=== PATIENT | female | born 1930 | race Caucasian/White ===

== ENCOUNTER 2021-07-28 13:01 | Inpatient (IN) | payer MEDICARE ==
[~2021-07-28] VITALS: Ht 162.6 cm; Wt 52.2 kg
--- NOTE | 2021-07-28 13:01 | NUR ---
PT BIB SON C/O L SHOULDER AND R HIP PAIN S/P GLF UNWITNESSED. PER PT SON THEY FOUND HER ON THE FLOOR WITH VOMIT. PT IS AAOX, NOT IN RESPIRATORY DISTRESS, HOOKED TO THERAPY DIRECTOR, KEPT RESTED AND COMFORTABLE. WILL CONTINUE TO MONITOR.
--- NOTE | 2021-07-28 13:23 | NUR ---
SEEN AND EXAMINED BY .
--- NOTE | 2021-07-28 13:35 | NUR ---
PT IV LINE ESTABLISHED BLOOD DRAWN AND SENT TO LAB.
[2021-07-28 13:42] LABS: BASOPHILS % (AUTO) 0.2 % (0.0-2.0); HEMATOCRIT 42 % (33-45); LYMPHOCYTES # (AUTO) 0.5 K/uL (0.8-4.8); LYMPHOCYTES % (AUTO) 3.9 % (20.0-44.0); MEAN CORPUSCULAR HGB CONC 34 g/dl (31.0-36.0); MEAN CORPUSCULAR VOLUME 86 fL (82-100); MONOCYTES # (AUTO) 0.4 K/uL (0.1-1.30); MONOCYTES % (AUTO) 2.6 % (2.0-12.0); NEUTROPHILS # (AUTO) 12.8 K/uL (1.8-8.9); NEUTROPHILS % (AUTO) 93.3 % (43.0-81.0); PLATELET COUNT (AUTO) 265 K/uL (150-450); RED BLOOD CELL COUNT(AUTO) 4.86 MIL/uL (4.0-5.2); WHITE BLOOD COUNT (AUTO) 13.8 K/uL (4.3-11.0)
[2021-07-28 13:54] LABS: CALCIUM, SERUM 9.3 mg/dL (8.5-10.1); CARBON DIOXIDE 26 mmol/L (21-32); CHLORIDE 103 mmol/L (98-107); CREATININE 0.7 mg/dL (0.6-1.3); GLUCOSE 113 mg/dL (74-106); POTASSIUM 3.8 mmol/L (3.5-5.1); SODIUM SERUM 141 mmol/L (136-145); UREA NITROGEN, BLOOD 13 mg/dL (7-18)
[2021-07-28 14:00] LABS: ALANINE AMINOTRANSFERASE 19 U/L (12-78); ALBUMIN 3.6 g/dL (3.4-5.0); ALKALINE PHOSPHATASE 83 U/L (46-116); ASPARTATE AMINOTRANSFERASE 26 U/L (15-37); BILIRUBIN,DIRECT 0.2 mg/dL (0.0-0.2); BILIRUBIN,TOTAL 0.7 mg/dL (0.2-1.0); TOTAL PROTEIN, SERUM 7.3 g/dL (6.4-8.2)
[2021-07-28] MEDS ORDERED: ONDANSETRON HCL/PF 4 MG/2 ML VIAL ONE (14:41)
--- NOTE | 2021-07-28 14:51 | NUR ---
PT UNABLE TO PROVIDE URINE SPECIMEN THIS TIME. PT REFUSED URINARY CATH.
[2021-07-28] MEDS ORDERED: ONDANSETRON HCL/PF - ER 4 MG/2 ML VIAL IV ONE (15:00)
[2021-07-28] MEDS ORDERED: IV NS 0.9% 500 ML BAG IV ONE (15:00)
--- NOTE | 2021-07-28 15:22 | NUR ---
PT HOOKED TO PACER PADS.
--- NOTE | 2021-07-28 15:32 | NUR ---
URINE SPECIMEN COLLECTED AND SENT TO LAB.
--- NOTE | 2021-07-28 15:45 | NUR ---
2ND IV LINE ESTABLISHED. G18 L FOREARM.
[2021-07-28 15:53] LABS: BILIRUBIN,URINE NEGATIVE (NEGATIVE); COLOR,URINE YELLOW (YELLOW); LEUKOCYTE ESTERASE ,URINE TRACE (NEGATIVE); NITRITE, URINE NEGATIVE (NEGATIVE); PROTEIN,URINE NEGATIVE (NEGATIVE); UGLUCOSE NEGATIVE (NEGATIVE); UROBILINOGEN,URINE 0.2 EU/dL (0.2)
[2021-07-28] MEDS ORDERED: AMIODARONE HCL 200 MG TABLET PO ONE (16:00)
[2021-07-28 16:03] LABS: BACTERIA,URINE RARE /HPF (None Seen); SQUAMOUS EPITHELIAL CELL,UR 0-2 /HPF (None Seen)
[2021-07-28] MEDS ORDERED: AMIODARONE HCL 200 MG TABLET ONE (16:06)
--- NOTE | 2021-07-28 16:10 | NUR ---
TRACTOR TRAILER MOVING VAN DRIVER AT BEDSIDE FOR ULTRASOUND.
--- NOTE | 2021-07-28 16:30 | NUR ---
MOVE SHEET SUBMITTED AND CALLED FOR TELE BED.
[2021-07-28 16:38] LABS: MAGNESIUM 2.1 mg/dL (1.8-2.4)
[2021-07-28 16:55] LABS: THYROID STIMULATING HORMONE 1.953 uIU/mL (0.358-3.74)
[2021-07-28] MEDS ORDERED: ACETAMINOPHEN 325 MG TABLET PO PRN (17:00)
[2021-07-28] MEDS ORDERED: ZOLPIDEM TARTRATE 5 MG TABLET PO PRN (17:00)
[2021-07-28] MEDS ORDERED: MAG HYDROX/AL HYDROX/SIMETH 30 ML UDC PO PRN (17:00)
[2021-07-28] MEDS ORDERED: ONDANSETRON HCL/PF 4 MG/2 ML VIAL IVP PRN (17:00)
[2021-07-28] MEDS ORDERED: MAGNESIUM HYDROXIDE 30 ML UDC PO PRN (17:00)
[2021-07-28] MEDS ORDERED: Z GUARD REMEDY 2 OZ OINT TP PRN (17:00)
[2021-07-28] MEDS ORDERED: hydrALAZINE HCL IV 20 MG VIAL ONE (17:31)
[2021-07-28] MEDS ORDERED: hydrALAZINE HCL IV 20 MG VIAL IV ONE (18:00)
--- NOTE | 2021-07-28 19:32 | NUR ---
REPORT GIVEN TO ANNA MARC FOR MARYCRUZ.
[2021-07-28] MEDS ORDERED: ENOXAPARIN SODIUM 40 MG/0.4 ML DISP.SYRIN SQ SCH (21:00)
[2021-07-28] MEDS: AMIODARONE HCL 200 MG TABLET PO SCH (21:00)
--- NOTE | 2021-07-28 21:10 | NUR ---
REPORT GIVEN TO ED RN FOR MARYCRUZ
--- NOTE | 2021-07-28 21:15 | NUR ---
PT WAS TRANSFERRED TO ICU UNDER ACLS
[2021-07-28 21:30] VITALS: BP 145/76
[2021-07-28 22:00] VITALS: BP 161/73
[2021-07-28 22:30] VITALS: BP 138/57
[2021-07-28 23:00] VITALS: BP 120/60
[2021-07-29] VITALS (19 sets, daily range): BP systolic 115–171; BP diastolic 41–89
[2021-07-29 04:25] LABS: BASOPHILS % (AUTO) 0.1 % (0.0-2.0); HEMATOCRIT 41 % (33-45); HEMOGLOBIN 13.9 g/dL (11.5-14.8); LYMPHOCYTES # (AUTO) 1.2 K/uL (0.8-4.8); LYMPHOCYTES % (AUTO) 10.2 % (20.0-44.0); MEAN CORPUSCULAR HGB CONC 34 g/dl (31.0-36.0); MEAN CORPUSCULAR VOLUME 85 fL (82-100); MONOCYTES # (AUTO) 0.7 K/uL (0.1-1.30); MONOCYTES % (AUTO) 5.9 % (2.0-12.0); NEUTROPHILS # (AUTO) 10.1 K/uL (1.8-8.9); NEUTROPHILS % (AUTO) 83.8 % (43.0-81.0); PLATELET COUNT (AUTO) 277 K/uL (150-450); RED BLOOD CELL COUNT(AUTO) 4.84 MIL/uL (4.0-5.2); WHITE BLOOD COUNT (AUTO) 12.1 K/uL (4.3-11.0)
[2021-07-29 04:40] LABS: CALCIUM, SERUM 9.1 mg/dL (8.5-10.1); CREATININE 0.7 mg/dL (0.6-1.3); PHOSPHORUS 4.8 mg/dL (2.5-4.9); POTASSIUM 3.9 mmol/L (3.5-5.1)
--- NOTE | 2021-07-29 04:40 | NUR ---
MICROFILM TECHNICIAN PT IS AWAKE, ALERT, ORIENTED X 3, PLEASANT & COOPERATIVE. SPEECH IS CLEAR, MOVES ALL EXTREMITIES, LEGS ARE WEAK. O2 -2L VIA N/C. LUNGS CLEAR. SCOPE-SR. AFEBRILE. VSS. IV SITES INTACT, FLUSHED WITH NS. FOR N/V PT WAS GIVEN ZOFRAN IVP, EFFECTIVE RESPONSE. MEDICATED ORDERED. VOIDS INSUFFICIENT AMT. OF URINE. NO BM. WILL CONTINUE CLOSE MONITORING.
[2021-07-29] MEDS: AMIODARONE HCL 200 MG TABLET PO SCH ×3 (05:04→21:09)
--- NOTE | 2021-07-29 05:50 | NUR ---
DEICER ELEMENT WINDER MACHINE PER ER STAFF ALL PT'S BELONGING WERE TAKEN HOME BY PT'S DAUGHTER DURING THE DAY SHIFT.
--- NOTE | 2021-07-29 07:35 | NUR ---
ICU/RN PT IS ON 2L N/C SAT O2-95-98%.V/S STABLE,AFEBRILE.NO PAIN REPORTED AT THIS TIME.REMOVED IV.IN DIAPER.CONFUSED.REDNESS ON GIN AREA NOTED.LABS REVIEW .MD AWARE. POST FALL AT HOME . BEDBOUND.
--- NOTE | 2021-07-29 09:00 | NUR ---
ICU/RN DUE MEDS ARE GIVEN ORDERED.
[2021-07-29] MEDS: APIXABAN 2.5 MG TABLET PO SCH ×2 (09:38→16:41)
--- NOTE | 2021-07-29 15:10 | NUR ---
ICU/RN PT TRANSFERED TO TELE UNIT ROOM 308-1..V/S STABLE,AFEBRILE.NO PAIN REPORTED AT THIS TIME.
--- NOTE | 2021-07-29 15:23 | NUR ---
INVESTIGATION OFFICERROOM MAID NOTES RECEIVED PATIENT FROM ICU. REPORT RECEIVED FROM NAT ICU NURSE. VITAL SIGNS STABLE. NO S/S OF DISTRESS NOTED. NO C/O PAIN AT THIS TIME. ORIENTED PATIENT TO UNIT, STAFF, CALL LIGHT AND TV REMOTE. IV ACCESS X 2 PATENT AND INTACT. SAFETY MEASURES IN PLACE. WILL CONTINUE TO MONITOR THROUGHOUT SHIFT.
--- NOTE | 2021-07-29 18:31 | NUR ---
BAFFLE INSTALLER CLOSING NOTES PATIENT IS RESTING IN BED, COMFORTABLY. ALERT AND ORIENTED X 3. NO C/O PAIN AT THIS TIME. NO SOB. BREATHING IS EVEN AND UNLABORED. EXTERNAL TELE MONITOR WITH SINUS RHYTHM 70'S. IV ACCESS AUGUSTA MIDLINE PATENT, INTACT AND FLUSHING WELL. SAFETY MEASURES IN PLACE WITH BED LOCKED AT LOW POSITION AND SIDE RAILS UP X2. WILL ENDORSE CONTINUITY OF CARE TO ONCOMING SHIFT.
--- NOTE | 2021-07-29 19:45 | NUR ---
SCALE TESTER OPENING NOTES PATIENT SLEEPING IN BED, EASILY AROUSED, ALERT/ORIENTED X 3, PT ABLE TO MAKE NEEDS KNOWN. PATIENT DENIES PAIN AT THIS TIME. PT STABLE ON RA, NO S/S OF DISTRESS OR SOB, BREATHING EVEN AND UNLABORED. AUGUSTA MIDLINE INTACT AND FLUSHING WELL, SALINE LOCKED. TELEMONITORING READING SINUS RHYTHM, HR: 63. SAFETY MEASURES IN PLACE: CALL LIGHT WITHIN REACH, BED LOCKED IN LOW POSITION, SIDE RAILS UP X 3, BED ALARM ON. WILL CONTINUE TO MONITOR PATIENT
[2021-07-30] VITALS: BP 164/56
[2021-07-30 04:00] VITALS: BP 148/71
[2021-07-30] MEDS: AMIODARONE HCL 200 MG TABLET PO SCH ×2 (04:21→13:16)
--- NOTE | 2021-07-30 05:00 | NUR ---
LEAD MAINTENANCE TECHNICIAN NOTE PATIENT PULLED OUT AUGUSTA MIDLINE, CATHETER INTACT, MINIMAL BLEEDING. PATIENT HAS NO IV ACCESS NOW. PER BRENT, CHARGE NURSE, NO NEED TO INSERT ANOTHER IV AT THIS TIME BECAUSE PATIENT HAS NO IV MEDICATION AND WILL POSSIBLY BE DISCHARGED TODAY. WILL CONTINUE TO MONITOR PATIENT
--- NOTE | 2021-07-30 06:00 | NUR ---
IRONER NOTE PATIENT REFUSED LAB DRAW, STATED IT WAS TOO EARLY AND SHE WANTED TO SLEEP. RISKS AND BENEFITS EXPLAINED TO THE PATIENT BUT PATIENT STILL REFUSED. SURGICAL DRESSING MAKER SAID SHE TRY AGAIN LATER
--- NOTE | 2021-07-30 07:08 | NUR ---
AMBULATORY ANALYST CLOSING NOTES PATIENT RESTING IN BED, APPEARS COMFORTABLE AND NOT IN DISTRESS. PT REMAINED STABLE THROUGHOUT SHIFT. PT STABLE ON RA, NO S/S OF DISTRESS OR SOB NOTED, BREATHING EVEN AND UNLABORED. PT HAS NO IV ACCESS BECAUSE SHE PULLED IT OUT. PATIENT ON TELEMETRY MONITORING READING SINUS RHYTHM, HR: 61. SAFETY MEASURES IN PLACE: CALL LIGHT WITHIN REACH, BED ALARM ON, SIDE RAILS UP X 3, BED LOCKED IN LOW POSITION. ENDORSED TO DAY SHIFT NURSE FOR CONTINUITY OF CARE
--- NOTE | 2021-07-30 07:30 | NUR ---
MS/RN OPENING NOTES RECEIVED PATIENT ON BED AWAKE ALERT AND ORIENTEDX3. PATIENT IS ON ROOM AIR. PATIENT IN NO APPARENT RESPIRATORY DISTRESS NOTED. NO COMPLAINED OF PAIN NOTED AT THIS TIME. WILL CONTINUE OT MONITOR.
[2021-07-30] MEDS ORDERED: APIX2.5T PO (07:43)
[2021-07-30] MEDS ORDERED: AMIO200T7 PO (07:43)
[2021-07-30 08:00] VITALS: BP 152/58
[2021-07-30] MEDS: APIXABAN 2.5 MG TABLET PO SCH (08:19)
--- NOTE | 2021-07-30 11:30 | NUR ---
SS consult SS consult requested for pt who lives alone at home. Pt is a 89-year-old, female. SW met with pt at her bedside in the med-surg unit. Pt was alert and oriented x3. Pt was calm and cooperative. Pt appeared well-groomed and appropriately dressed. Per chart, pt was brought in to the hospital by son on 07/28/21 for syncope. Pt stated that she currently lives at [id number] [place] [address] [address], [place] [address]; [phone]. Pt currently lives alone. Pt stated that she needs assistance to complete her ADL's. Pt stated that she has social support from her son, Barney Donovan, . Pt provided SW with contact information for her sister, Rayna, . Pt currently receives [employer] as a source of income. Pt reported no hx of substance abuse. Pt reported no hx of mental illness. Pt reported no current SI/HI. SW offered the pt senior resources. Pt accepted the resources and thanked ZACHARY. ZACHARY discussed D/C plans with the pt, SNF v. Home with HH. Pt stated that she prefers to be D/C to home with HH and declined SNF placement. ZACHARY notified Nahomi Cho of this D/C plan and CMG to f/u with D/C plan to home with HH. ZACHARY and CMG were unable to reach pt's son, Barney Donovan. ZACHARY provided SIRI Cho with contact information for pt's sister, Rayna. PLAN: Pt plans to be D/C to home with HH. No further SS intervention at this time, however, SW will remain available as needed. SENIOR RESOURCES: ABUSE PREVENTION: Elder Abuse Hotline (15/06) Adult Protective Services Hotline Long-Term Care [facility] Area On Aging (Hotline) ADULT DAY HEALTH CARE CARE CENTERS: Private pay or Medi-tiffany funded adult day care [place] [facility] , [facility] , [facility] Adult Care Center , [facility] Day Health Care , [facility] Day [facility] Care , [facility] , [facility] Generation Center , [facility] , [facility] HEALTH ASSOCIATIONS: AARP www.aarp.org ALS Association ([phone] 200-1717818) 865-8067 (ask for Imani) www.als.org Cymraes Diabetes Association www.diabetes.org Cymraes Heart Association www.heart.org Cymraes Lung Association www.lungusa.org Cymraes Parkinson Disease Association www.apdaparkinson.org Cymraes [place] , www.redcross.org Arthritis Foundation www.arthritis.org Crohns & Colitis Foundation of Cymraes www.ccfa.org/chapters/rastaangeles National Multiple Sclerosis Society www.nationalmssociety.org Myasthenia Gravis Foundation www.myasthenia-ca.org National Stroke Association www.stroke.org CONSERVATORSHIP & GUARDIANSHIP: AARP Lorena Trinidad Legal Services Center for Health Care Rights [facility]are Information and Referral Protocol Officer Foundation [facility]: [facility] Bar Referral Service [facility] Legal Services Office of the Public Guardian [place] GRIEF AND BEREAVEMENT RESOURCES: [facility] , [facility] THE HOPE Connection , [facility] , [place] HELP AT HOME CAREGIVER SUPPORT: In Home Support Services (Must have Medi-Tiffany to be eligible) *Ask for a list of agencies that provide services to assist with care in the home. Local Senior Centers also have listings of care providers. HOME SAFETY MODIFICATIONS AND EQUIPMENT: Senior centers have additional referrals. [place] MyLuvs and [place] Dept. Handyworker Program (low income) or Visit http://hcidla.[facility] cherry hillZexSports.com.org/bno-fudbmv-hj for more information National Seating and Mobility and/or ; Forever Active www.foreverAYOXXA Biosystems.NodePing Stay Home Safe www.Stayhomesafe.com LIFE ALERT RESPONSE SYSTEM: HomeViva Lifeline Services 658-106-6481 www. LifeponUp.NodePing Life Alert 412-982-6572 www.lifealert.NodePing Life Station 361-576-7255 www.Blue Spark Technologiesation.NodePing Safe Return 716-962-2173 www.alz.or/safereturn Cell Phones for Seniors www.EverTrue MEALS AND FOOD PROGRAMS: [place] Meals on Wheels [phone] [place] Meals on Wheels [phone] [facility] [phone] [place] to the Homebound [phone] [place] to the Homebound [phone] [facility] to the Homebound [phone] [facility] to the Homebound [phone] Flaco Duran [phone] Ashwin Rubio [place] [phone] ONE Generation [phone] [facility] [phone] Supriya [facility] [phone] Meals on Wheels [phone] For all ages: $6.85/ meal w side. Delivered M-F from 10 am-1pm. Application and payment is done over the phone. Frozen meals available for weekends. Emergency Food [facility] [phone] Sikh Lidding Machine Operator [phone] [facility] [phone] [facility]ama[facility]- Brown bag lunches [phone] [facility] [phone] MEAL/GROCERY DELIVERY PROGRAMS: [facility] Gourmet Meals [phone]- [facility] [phone]- [facility] Magic Kitchen [phone] Moms Meals [phone] (ask Terrell for Discount Select grocery stores may provide delivery. MEDICAL INSURANCE SUPPORT SERVICES: Center for Health Care Rights [phone] Health Insurance Counseling/Advocacy Programs (HICAP)-Must have Medicare. Offers counseling for Medi-Tiffany eligibility [phone] Department of Public Lidding Machine Operator [phone] www.[facility].ca.gov Medicare 523-875-2723 www.socialsecurity.org Social Security [phone] SENIOR ACTIVITY PROGRAMS: *Contact a local senior center, adult school, recreation facility or community college for education, fitness, recreation, and social programs. Aquatic Therapy and Adapted Exercise programs through [facility] [phone] Encore at [facility] [phone] www.[facility]/encore U- Senior Friends [phone] [place] [phone] www.oasisnet.org Suddenly 65 www.zcjgbugu28.com SENIOR CENTERS: [facility] [phone] [facility] [phone] [facility] [phone] [facility] [place] [phone] [facility] [phone] [facility] [phone] [facility] [phone] [facility] Association [phone] One GenerationLei [facility] [phone] [facility] [phone] [phone] [facility] [phone] [facility] [phone] TRANSPORTATION: Local [facility] Centers may have applications for transportation programs and additional resources. ACCESS Services [phone] Transportation for seniors and disabled persons 7 days a week requiring 254 hr. advance reservation. Must apply and register for program to be eligible. Rethink Autism [phone] or [phone] Transportation for seniors and persons with ADA card/metro disabled card in the [facility]. M-F only. Must register for services. ONE GENERATION [phone] Serves 65 years + in conjunction with NaphCare program. Must be registered with both programs. A to B Transport [phone] Provides wheelchair/gurney van service. TRANSPORTATION CONTINUED: Adult Medical Transport [phone] Accepts Medi-tiffany with prior authorization. Care Van [phone] Provides wheelchair Transport. [facility] Wide Transportation [phone] Provides gurney service Gentle Care [phone] Gurney Transport. [facility] Town Transportation [phone] wheelchair & gurney transport [facility] Transportation [phone] wheelchair & gurney transport [place] Non-Emergency Transport [phone] wheelchair & gurney transport [facility] Living [place] [phone] (Short Term Transportation primarily for adults with disabilities on social security income. Nominal fee may apply and a reservation is required.) [employer] [phone] or [phone] SwipeToSpin [phone] [place] [address] Services -[phone] For additional programs & services VETERANS RESOURCES: Submissions for Aid and Attendance should be done directly to [facility] office located at: [address] [address] X110 National Caregiver Support Line [phone] Tiffany [facility]et Veterans Services Field Office [phone] [place] Department of [place] Affairs [phone] Pension Information [phone]
[2021-07-30 16:06] VITALS: BP 125/74
--- NOTE | 2021-07-30 17:26 | NUR ---
MS/RN NOTES PATIENT IS ALERT AND ORIENTEDX3. PATIENT IS ON ROOM AIR. PATIENT IN NO APPARENT RESPIRATORY DISTRESS NOTED. NO COMPLAINED OF PAIN. SEEN AND EXAMINED BY MD WITH ORDERS MADE AND CARRIED OUT. ALL DUE MEDICATIONS WAS GIVEN. DISCHARGED INSTRUCTION WAS GIVEN AND LAMIN TRIPLETT VERBALIZED UNDERSTANDING. PATIENT LEFT THE HOSPITAL IN MEDICALLY STABLE CONDITION. COFFEE SHOP AIDE BY LAMIN TRIPLETT VIA PRIVATE CAR.
== END 2021-07-30 16:45 | disposition home or self-care (01) | DRG 308 ==
LOC: ER 13:11 → ICU 20:56 → TELE 07-29 15:15 → MED 07-30 08:02
PROVIDERS: ADMIT Internal Medicine; ATTEND Family Medicine
PROC: 02HV33Z Insertion of Infusion Device into Superior Vena Cava, Percutaneous Approach (ICD-10-PCS; principal; 2021-07-30)
PROC: B548ZZA Ultrasonography of Superior Vena Cava, Guidance (ICD-10-PCS; 2021-07-30)
DX: I48.91 Unspecified atrial fibrillation (principal); G93.41 Metabolic encephalopathy; N39.0 Urinary tract infection, site not specified; E86.0 Dehydration; I48.0 Paroxysmal atrial fibrillation; Z88.5 Allergy status to narcotic agent; Z91.81 History of falling
CPT/HCPCS: 36410; 36415; 70450-TC; 71045-TC; 72125-TC; 72170-TC; 72192-TC; 80048-TC; 80061-TC; 80076-TC; 81001; 83735-TC; 84100-TC; 84439-TC; 84443-TC; 84484-TC; 85025-TC; 87081-TC; 87086-TC; 93307-TC; 97112-TC; 97116-TC; 97530-TC; C9803; G0378; J0360; J1650; J2405; J7030